=== PATIENT | male | born 1960 | race Caucasian/White ===

== ENCOUNTER 2017-02-01 09:38 | Emergency (ER) | payer BC ==
--- NOTE | 2017-02-01 11:14 | UC ---
Skin Complaint HPI - HPI Summary HPI Summary: history of cystic acne has a firm had cyst in right and left groin for a couple of days, - History of Current Complaint Chief Complaint: UCSkin Time Seen by Provider: 02/01/17 11:03 Stated Complaint: PAINFUL CYSTS Hx Obtained From: Patient Onset/Duration: Sudden Onset, Lasting Days - 2, Still Present Timing: Constant Onset Severity: Moderate Current Severity: Moderate Pain Intensity: 5 Pain Scale Used: 0-10 Numeric Character: Painful - firm hard no fluctulance Aggravating: Touch Alleviating: Nothing Associated Signs & Symptoms: Positive: Tenderness - Allergy/Home Medications Allergies/Adverse Reactions: Allergies Allergy/AdvReac Type Severity Reaction Status Date / Time environmental Allergy Congestion Uncoded 02/01/17 09:56 Home Medications: Home Medications Elidel 02/01/17 [History] Levothyroxine TAB* [Synthroid 150 MCG TAB*] 1 tab PO DAILY 02/01/17 [History Confirmed 02/01/17] Testopel Insert 02/01/17 [History] Zolpidem Tartrate [Ambien] 1 tab PO PRN 02/01/17 [History] buPROPion TAB* [Wellbutrin TAB*] 1 tab PO DAILY 02/01/17 [History Confirmed 10/16] Review of Systems Constitutional: Negative Skin: Negative, Other - cyst right and left groin Eyes: Negative ENT: Negative Respiratory: Negative Cardiovascular: Negative Gastrointestinal: Negative Genitourinary: Negative Motor: Negative Neurovascular: Negative Musculoskeletal: Negative Neurological: Negative Psychological: Negative All Other Systems Reviewed And Are Negative: Yes PMH/Surg Hx/FS Hx/Imm Hx Previously Healthy: No Endocrine History: Hypothyroidism Cardiovascular History: Deep Vein Thrombosis - cystic acne Psychological History: Depression - Surgical History Surgical History: Yes Surgery Procedure, Year, and Place: SINUS - Family History Known Family History: Positive: None Family History: no reported cardiovascular issues in family lineage - Social History Occupation: Employed Full-time Lives: With Family Alcohol Use: Rare Substance Use Type: None Smoking Status (MU): Never Smoked Tobacco Physical Exam Triage Information Reviewed: Yes Appearance: Well-Appearing, No Pain Distress, Well-Nourished Vital Signs: Initial Vital Signs Temp 98.7 F 02/01/17 10:00 Pulse 82 02/01/17 10:00 Resp 16 02/01/17 10:00 BP 128/88 02/01/17 10:00 Pulse Ox 100 02/01/17 10:00 Vital Signs Reviewed: Yes Eye Exam: Normal Eyes: Positive: Conjunctiva Clear ENT Exam: Normal ENT: Positive: Normal ENT inspection, Hearing grossly normal. Negative: Nasal congestion, Nasal drainage, Tonsillar swelling, Tonsillar exudate Dental Exam: Normal Neck exam: Normal Neck: Positive: Supple, Nontender, No Lymphadenopathy Respiratory Exam: Normal Respiratory: Positive: Chest non-tender, No respiratory distress, No accessory muscle use Cardiovascular Exam: Normal Cardiovascular: Positive: RRR, Pulses Normal, Brisk Capillary Refill Musculoskeletal Exam: Normal Musculoskeletal: Positive: Strength Intact, ROM Intact, No Edema Neurological Exam: Normal Neurological: Positive: Alert, Muscle Tone Normal Psychological Exam: Normal Skin Exam: Normal Skin: Positive: Other - firm no fluctulance in a cyst on each side of groin--- no streking + tender to touch Course/Dx - Course Course Of Treatment: warm compress, ibuprofen, bactrim, return or follow with pcp for I&D when cysts soften or follow with surgeon for removal - Differential Diagnoses - Skin Complaint Differential Diagnoses: Abscess, Local Allergic Reaction - Diagnoses Provider Diagnoses: Abscess right and left groin Discharge - Discharge Plan Condition: Stable Disposition: HOME Prescriptions: Sulfamethox/Trimethoprim DS* [Bactrim DS 800/160 TAB*] 1 tab PO BID #20 tab Patient Education Materials: Sulfamethoxazole/Trimethoprim (By mouth), Cyst (ED ), Warm Compress or Soak (ED) Referrals: Brian Bond MD [Medical Doctor] - 2 Weeks
== END 2017-02-01 11:20 | disposition home or self-care (01) ==
LOC: UCEAST 09:38
DX: L02.214 Cutaneous abscess of groin (principal); E03.9 Hypothyroidism, unspecified; F32.9 Major depressive disorder, single episode, unspecified; Z86.718 Personal history of other venous thrombosis and embolism
CPT/HCPCS: 99202; G0463

== ENCOUNTER 2018-05-14 12:30 | Emergency (ER) | payer BC ==
--- NOTE | 2018-05-14 13:36 | UC ---
Skin Complaint HPI - HPI Summary HPI Summary: Pt presents with request for injection of cortisone steroid in cystic acne on face. Pt has long history of cystic acne and has been treated in past with injections of cortisone and is requesting one today. Pt does not have regular dermatology or primary care provider. - History of Current Complaint Chief Complaint: UCSkin Time Seen by Provider: 05/14/18 13:28 Stated Complaint: RASH Hx Obtained From: Patient Onset/Duration: Gradual Onset, Lasting Days, Still Present Skin Exposure Onset/Duration: Days Ago Timing: Constant Onset Severity: Mild Current Severity: Moderate Pain Intensity: 0 Location: Face - left side of nose Character: Swelling, Pain, Redness, Raised Aggravating Factor(s): Touch Alleviating Factor(s): Other - cortisone injection Associated Signs & Symptoms: Positive: Tenderness - Allergy/Home Medications Allergies/Adverse Reactions: Allergies Allergy/AdvReac Type Severity Reaction Status Date / Time environmental Allergy Congestion Uncoded 05/14/18 12:54 Home Medications: Home Medications Valacyclovir HCl [Valtrex] 1,000 mg PO SEE INSTRUCTIONS 05/14/18 [History Confirmed 05/14/18] Review of Systems Constitutional: Negative Skin: Other - cystic acne Eyes: Negative ENT: Negative Respiratory: Negative Cardiovascular: Negative Gastrointestinal: Negative Genitourinary: Negative Motor: Negative Neurovascular: Negative Musculoskeletal: Negative Neurological: Negative Psychological: Negative Is Patient Immunocompromised?: No All Other Systems Reviewed And Are Negative: Yes PMH/Surg Hx/FS Hx/Imm Hx Previously Healthy: Yes Endocrine History: Thyroid Disease Psychological History: Depression - Surgical History Surgical History: Yes Surgery Procedure, Year, and Place: SINUS - Family History Known Family History: Positive: None Family History: no reported cardiovascular issues in family lineage - Social History Occupation: Employed Full-time Lives: With Family Alcohol Use: Rare Substance Use Type: None Smoking Status (MU): Never Smoked Tobacco Have You Smoked in the Last Year: No Physical Exam Triage Information Reviewed: Yes Appearance: Well-Appearing Vital Signs: Initial Vital Signs Temp 98.6 F 05/14/18 12:48 Pulse 74 05/14/18 12:48 Resp 18 05/14/18 12:48 BP 137/90 05/14/18 12:48 Pulse Ox 99 05/14/18 12:48 Vital Signs Reviewed: Yes Eye Exam: Normal ENT Exam: Normal ENT: Positive: Hearing grossly normal Neck exam: Normal Respiratory: Positive: No respiratory distress Musculoskeletal Exam: Normal Neurological Exam: Normal Psychological Exam: Normal Skin Exam: Other - ~ 2cm firm moveable mass left side of nose with purulent filled head . Pt declined offer to incision and drain cyst. Course/Dx - Differential Diagnoses - Skin Complaint Differential Diagnoses: Abscess - Diagnoses Provider Diagnoses: cystic acne Discharge - Sign-Out/Discharge Documenting (check all that apply): Patient Departure All imaging exams completed and their final reports reviewed: No Studies - Discharge Plan Condition: Stable Disposition: HOME Prescriptions: Cephalexin CAP* [Keflex 500 CAP*] 500 mg PO Q8H #21 cap Patient Education Materials: Abscess (ED), Cyst (ED) Referrals: [facility] [Outside] - If Needed Elvie Soriano MD [Medical Doctor] - If Needed No Primary Care Phys,NOPCP [Primary Care Provider] - - Billing Disposition and Condition Condition: STABLE Disposition: Home
== END 2018-05-14 13:44 | disposition home or self-care (01) ==
LOC: UCEAST 12:30
DX: L70.0 Acne vulgaris (principal)
CPT/HCPCS: 99212; G0463

== ENCOUNTER 2019-02-25 08:11 | Emergency (ER) | payer BC ==
--- NOTE | 2019-02-25 08:50 | UC ---
Ear Complaint HPI - HPI Summary HPI Summary: 58-year-old male presents with complaints of redness, swelling, and tenderness of the left ear for the past week. States he has been taking some cephalexin twice a day that his girlfriend had left over with no improvement in his symptoms. Denies fever, chills, hearing loss, ear drainage, or URI symptoms. - History of Current Complaint Chief Complaint: UCEar Stated Complaint: EAR COMPLAINT Time Seen by Provider: 02/25/19 08:28 Hx Obtained From: Patient Pain Intensity: 2 - Allergies/Home Medications Allergies/Adverse Reactions: Allergies Allergy/AdvReac Type Severity Reaction Status Date / Time environmental Allergy Congestion Uncoded 02/25/19 08:20 PMH/Surg Hx/FS Hx/Imm Hx Endocrine History: Hypothyroidism Psychological History: Depression - Surgical History Surgical History: Yes Surgery Procedure, Year, and Place: SINUS. tonsillectomy. left thumb - metal removed - Family History Known Family History: Positive: None Family History: no reported cardiovascular issues in family lineage - Social History Occupation: Employed Full-time Lives: Alone Alcohol Use: Rare Substance Use Type: None Smoking Status (MU): Never Smoked Tobacco Have You Smoked in the Last Year: No Review of Systems All Other Systems Reviewed And Are Negative: Yes Constitutional: Negative: Fever, Chills Skin: Positive: Other - See HPI Eyes: Negative: Drainage, Eye Redness ENT: Negative: Sore Throat, Ear Ache, Nasal Discharge, Sinus Congestion, Sinus Pain/Tenderness Respiratory: Negative: Cough Cardiovascular: Positive: Negative Gastrointestinal: Positive: Negative Genitourinary: Positive: Negative Musculoskeletal: Positive: Negative Neurological: Positive: Negative Is Patient Immunocompromised?: No Physical Exam - Summary Physical Exam Summary: GENERAL APPEARANCE: Well developed, well nourished, alert and cooperative, and appears to be in no acute distress. EYES: Conjunctiva clear. No drainage. EARS: Erythema, tenderness, and mild edema of the andi of the left ear without induration or fluctuance. External auditory canals and tympanic membranes clear, hearing grossly intact. NOSE: No nasal discharge. THROAT: Pharynx normal, No tonsilar inflammation, swelling, exudate, or lesions. Uvula midline. NECK: Neck supple, non-tender without lymphadenopathy. CARDIAC: Normal S1 and S2. No S3, S4 or murmurs. Rhythm is regular. There is no peripheral edema, cyanosis or pallor. Extremities are warm and well perfused. Capillary refill is less than 2 seconds. Peripheral pulses intact. LUNGS: Clear to auscultation without rales, rhonchi, wheezing or diminished breath sounds. ABDOMEN: Positive bowel sounds. Soft, nondistended, nontender. No guarding or rebound. No masses or hepatosplenomegally. MUSKULOSKELETAL: ROM intact to all extremities. No joint erythema or tenderness. Normal muscular development. Normal gait. SKIN: Skin normal color, texture and turgor. Triage Information Reviewed: Yes Vital Signs: Initial Vital Signs Temp 98.6 F 02/25/19 08:14 Pulse 84 02/25/19 08:14 Resp 16 02/25/19 08:14 BP 131/90 02/25/19 08:14 Pulse Ox 97 02/25/19 08:14 Vital Signs Reviewed: Yes Ear Complaint Course/Dx - Course Course Of Treatment: 58-year-old male presents with complaints of redness, swelling, and tenderness of the left ear for the past week. States he has been taking some cephalexin twice a day that his girlfriend had left over with no improvement in his symptoms. Denies fever, chills, hearing loss, ear drainage, or URI symptoms. Afebrile. Vital signs stable. Patient had erythema, tenderness, and mild edema of the andi of the left ear without induration or fluctuance. Remainder of exam was unremarkable. Patient stated that he was going to be traveling to the [facility] [place] and a couple of days. Although I do not feel that clinically the patient has perichondritis at this time I will treat with ciprofloxacin 500 mg twice a day 7 days to provide adequate coverage for Pseudomonas especially since the patient will be out of country and may not have appropriate follow-up should his condition worsen. I did discuss the potential side effects of ciprofloxacin with the patient however I believe that the benefit outweighs the risks at this time. He is to follow-up with his primary care provider in 3 days if his symptoms are not improving. Anticipatory guidance and warning symptoms were reviewed with patient. Verbalizes understanding and agrees with plan of care. - Differential Dx/Diagnosis Differential Diagnosis/HQI/PQRI: Cellulitis, Otitis Externa, Other - perichondritits Provider Diagnosis: Cellulitis of andi of left ear Discharge - Sign-Out/Discharge Documenting (check all that apply): Patient Departure All imaging exams completed and their final reports reviewed: No Studies - Discharge Plan Condition: Stable Disposition: HOME Prescriptions: Ciprofloxacin TAB* [Cipro 500 MG TAB*] 500 mg PO BID #14 tab Patient Education Materials: Cellulitis (ED) Referrals: No Primary Care Phys,NOPCP [Primary Care Provider] - Additional Instructions: You appear to have a skin infection of the andi of the left ear. We will start to on an antibiotic to treat the infection. Stop taking the cephalexin. Start ciprofloxacin 500 mg twice a day for 7 days. Be sure to complete the entire course even if feeling better. Follow-up with your primary care provider in 3 days if symptoms do not improve. Seek immediate medical attention in the emergency room if you develop a fever greater than 100.5 F, the redness continues to spread, have increased swelling of the earlobe, or any worsening of symptoms. - Billing Disposition and Condition Condition: STABLE Disposition: Home
== END 2019-02-25 09:14 | disposition home or self-care (01) ==
LOC: UCEAST 08:11
DX: H60.11 Cellulitis of right external ear (principal); E03.9 Hypothyroidism, unspecified; F32.9 Major depressive disorder, single episode, unspecified
CPT/HCPCS: 99212; G0463